=== PATIENT | female | born 1985 | race Caucasian/White ===

== ENCOUNTER → 2023-09-09 15:17 | Outpatient (BNVA) | payer BC, SELFPAY | PROVIDERS: PCP Nurse Practitioner Family; Visit Provider Nurse Practitioner Family | DX: Z30.9 Encounter for contraceptive management, unspecified (principal) | CPT/HCPCS: 81025 ==

== ENCOUNTER → 2023-12-15 14:48 | Outpatient (BNVA) | payer BC, SELFPAY | PROVIDERS: PCP Nurse Practitioner Family; Visit Provider Nurse Practitioner Family | DX: Z30.013 Encounter for initial prescription of injectable contraceptive (principal) | CPT/HCPCS: 81025 ==

== ENCOUNTER 2024-10-05 10:41 | Outpatient (CLI) | payer BC, MEDICAID, SELFPAY ==
--- NOTE | 2024-10-05 10:56 | MR_ITS ---
WS: [id number] MRI CERVICAL SPINE NONCONTRAST TECHNIQUE: Sagittal T1, T2 and STIR imaging. Axial T2, gradient, and fiesta imaging. CLINICAL INFORMATION: BACK PAIN COMPARISON: None. FINDINGS: Straightening of normal cervical lordosis. Small disc protrusions at C5-C6 and C6-C7 with slight inde ntation of the cervical cord. Cord signal is normal. C2-C3: Normal. C3-C4: Mild facet arthropathy. Spinal canal and foramen are patent. C4-C5: Mild facet arthropathy. Spinal canal and foramen are patent. C5-C6: Disc osteophyte protrusion with indentation on the LEFT ventral cervical cord. Mild central ca nal stenosis. Severe LEFT and mild RIGHT bony foraminal narrowing. Mild facet arthropathy with uncove rtebral joint hypertrophy. C6-C7: Disc osteophyte complex with slight indentation cervical cord. Mild central canal stenosis. Mi ld facet arthropathy with uncovertebral joint hypertrophy. Moderate bilateral bony foraminal narrowin g worse on the LEFT. C7-T1: Spinal canal and foramen are patent. Visualized brain stem structures: Normal. Prevertebral soft tissues: Normal. MR/MR cervical spin wo con* [id number] IMPRESSION: 1. Disc osteophyte protrusions C5-C6 and C6-C7 with mild central canal stenosi s and slight indentation of the cervical cord worse at C5-6. 2. Severe LEFT C5-6 bony foraminal narrowing. 3. Moderate bilateral C6-7 bony foraminal narrowing worse on the LEFT.
== END 2024-10-05 10:42 | disposition home or self-care (01) ==
LOC: RAD 10:45
PROVIDERS: PCP Nurse Practitioner; Visit Provider Nurse Practitioner
DX: M99.61 Osseous and subluxation stenosis of intervertebral foramina of cervical region (principal); M50.222 Other cervical disc displacement at C5-C6 level; M50.223 Other cervical disc displacement at C6-C7 level; M25.78 Osteophyte, vertebrae
CPT/HCPCS: 72141